=== PATIENT | male | born 1990 | race Caucasian/White ===

== ENCOUNTER 2023-06-14 08:05 | Emergency (ER) | payer OTHER ==
[~2023-06-14] VITALS: Ht 170.2 cm; Wt 68.5 kg
[2023-06-14] MEDS: ACETAMINOPHEN ES 500 MG TABLET PO ONE (09:00)
[2023-06-14] MEDS: IBUPROFEN 400 MG TABLET PO ONE (09:00)
[2023-06-14] MEDS: CYCLOBENZAPRINE 10 MG TABLET PO ONE (09:00)
[2023-06-14] MEDS ORDERED: ACETAMINOPHEN ES 500 MG TABLET ONE (09:06)
[2023-06-14] MEDS ORDERED: CYCLOBENZAPRINE 10 MG TABLET ONE (09:07)
[2023-06-14] MEDS ORDERED: IBUPROFEN 400 MG TABLET ONE (09:07)
[2023-06-14 10:19] VITALS: BP 112/78; TEMP 98.1; O2SAT 100
== END 2023-06-14 10:20 | disposition home or self-care (01) ==
LOC: ER 08:28
DX: G89.29 Other chronic pain (principal); Z59.00 Homelessness unspecified; Z88.5 Allergy status to narcotic agent